=== PATIENT | male | born 1985 | race African-American/Black ===

== ENCOUNTER 2021-08-24 18:18 | Emergency (ER) | payer SELFPAY ==
[2021-08-24 19:30] VITALS: BP 145/80
[2021-08-24] MEDS ORDERED: IBUPROFEN 800 MG TAB PO ONE (19:31)
--- NOTE | 2021-08-24 19:33 | Emergency Department Report ---
Blank Doc - Documentation Documentation: pt c/o sscp w/cough and ispiration. no trauma. not exertional. rrr cta ntpp cxr, ekg ordered. this is mse exam. another provider will follow up and complete the ed visit.
--- NOTE | 2021-08-24 20:16 | XRay Report ---
CHEST 2 VIEWS INDICATION / CLINICAL INFORMATION: cough. COMPARISON: None available. FINDINGS: SUPPORT DEVICES: None. HEART / MEDIASTINUM: No significant abnormality. LUNGS / PLEURA: No significant pulmonary abnormality. No significant pleural effusion. No pneumothora x. ADDITIONAL FINDINGS: No significant additional findings. IMPRESSION: 1. No acute abnormality of the chest. Signer Name: Chay Bass MD Signed: 08/24/2021 8:11 PM Workstation Name: [id number]
[2021-08-24] MEDS ORDERED: BENZONATATE 100 MG CAP PO ONE (20:50)
[2021-08-24 20:59] LABS: Basophils # (Auto) 0.2 K/mm3 (0.0-0.1); Basophils % (Auto) 2.5 % (0.0-1.8); Eosinophils # (Auto) 0.2 K/mm3 (0.0-0.4); Hematocrit 40.4 % (35.5-45.6); Hemoglobin 14.4 gm/dl (11.8-15.2); Lymphocytes # (Auto) 1.2 K/mm3 (1.2-5.4); Lymphocytes % (Auto) 17.5 % (13.4-35.0); Mean Corpuscular HGB Conc 36 % (32-34); Mean Corpuscular Volume 87 fl (84-94); Monocytes # (Auto) 0.7 K/mm3 (0.0-0.8); Monocytes % (Auto) 10.5 % (0.0-7.3); Platelet Count 195 K/mm3 (140-440); Red Blood Count 4.62 M/mm3 (3.65-5.03); Red Cell Distribution Width 15.6 % (13.2-15.2)
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
[2021-08-24 21:23] LABS: Creatine Kinase MB 5.3 ng/mL (0.0-4.0)
[2021-08-24 21:24] LABS: Blood Urea Nitrogen 4 mg/dL (9-20); Calcium 9.7 mg/dL (8.4-10.2); Hemolysis Index 9
[2021-08-24 21:35] LABS: BUN/Creatinine Ratio 7
--- NOTE | 2021-08-28 10:13 | Electrocardiograph Report ---
[facility] Test Date: 2021-08-24 Test Time: 19:32:16 Pat Name: TORSTEN SOTO Department: Room: Gender: M Networking Engineer: : 1985 Requested By: INDIGO LAYTON Order Number: [id number] Reading MD: Yoni De La Rosa Measurements Intervals [place] Rate: 67 P: 59 DE: 144 QRS: 24 QRSD: 114 T: 34 QT: 417 QTc: 441 Interpretive Statements Sinus rhythm ST elev, probable normal early repol pattern No previous ECG available for comparison Electronically Signed On 08-28-2021 10:12:43 EDT by Yoni De La Rosa
== END 2021-08-24 22:13 | disposition home or self-care (01) ==
LOC: ED 18:18
DX: J06.9 Acute upper respiratory infection, unspecified (principal); H10.9 Unspecified conjunctivitis; I10 Essential (primary) hypertension; E78.00 Pure hypercholesterolemia, unspecified; F17.200 Nicotine dependence, unspecified, uncomplicated; Z72.89 Other problems related to lifestyle; Z79.899 Other long term (current) drug therapy
CPT/HCPCS: 36415; 71046; 80048; 82550; 82553; 84484; 85025; 93005; 99284

== ENCOUNTER 2021-11-06 14:13 | Emergency (ER) | payer SELFPAY ==
[2021-11-06] MEDS ORDERED: ONDANSETRON 4 MG/2 ML INJ IV ONE (17:03)
[2021-11-06] MEDS ORDERED: SODIUM CHLORIDE 0.9% 500 ML 500 ML IV ONE (17:03)
[2021-11-06] MEDS ORDERED: KETOROLAC 30 MG/1 ML INJ IV ONE (17:03)
[2021-11-06] MEDS ORDERED: ALUM-MAG HYDROXIDE-SIMETHICONE 200-200-20MG/5ML ORAL LIQD 30 ML PO ONE (17:04)
--- NOTE | 2021-11-06 18:05 | Ultrasound Report ---
ULTRASOUND ABDOMEN, LIMITED INDICATION / CLINICAL INFORMATION: Abdominal pain. COMPARISON: None available. FINDINGS: PANCREAS: Visualized portion shows no significant abnormality. LIVER: Moderately echogenic and heterogeneous characteristic of fatty infiltration. No focal lesion. Antegrade flow in the main portal vein. Liver measures 15.7 cm. GALLBLADDER: No significant abnormality. BILE DUCTS: No significant abnormality. Common bile duct measures 2 mm. FREE FLUID: None. ADDITIONAL FINDINGS: None. IMPRESSION: 1. No acute sonographic normality. 2. Hepatic steatosis. Signer Name: Carlos Campos MD Signed: 11/06/2021 6:01 PM Workstation Name: [id number]
[2021-11-06 18:19] LABS: Eosinophils % (Auto) 0.8 % (0.0-4.3); Hematocrit 44.9 % (35.5-45.6); Hemoglobin 15.2 gm/dl (11.8-15.2); Lymphocytes % (Auto) 19.5 % (13.4-35.0); Mean Corpuscular HGB Conc 34 % (32-34); Mean Corpuscular Volume 92 fl (84-94); Monocytes # (Auto) 0.7 K/mm3 (0.0-0.8); Monocytes % (Auto) 13.1 % (0.0-7.3); Red Blood Count 4.89 M/mm3 (3.65-5.03); Red Cell Distribution Width 13.9 % (13.2-15.2)
[2021-11-06 18:20] LABS: Basophils % (Auto) 0.8 % (0.0-1.8); Platelet Count 166 K/mm3 (140-440)
[2021-11-06 18:38] LABS: Alanine Aminotransferase 165 units/L (7-56); Albumin 4.6 g/dL (3.9-5); Blood Urea Nitrogen 11 mg/dL (9-20); Calcium 10.1 mg/dL (8.4-10.2); Hemolysis Index 20
[2021-11-06 18:40] LABS: BUN/Creatinine Ratio 22
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
[2021-11-06 19:24] VITALS: BP 138/82
== END 2021-11-06 19:22 | disposition home or self-care (01) ==
LOC: ED 14:13
DX: K21.9 Gastro-esophageal reflux disease without esophagitis (principal); I10 Essential (primary) hypertension; E78.00 Pure hypercholesterolemia, unspecified; F17.200 Nicotine dependence, unspecified, uncomplicated; Z72.89 Other problems related to lifestyle; Z79.899 Other long term (current) drug therapy
CPT/HCPCS: 36415; 76705; 80053; 83690; 85025; 96374; 96375; 99284; J1885; J2405; J7040